=== PATIENT | male | born 1945 | race Two or more races ===

== ENCOUNTER 2017-03-03 12:56 | Emergency (ER) | payer OTHER ==
[2017-03-03 13:05] VITALS: BP 122/62; PULSE 44; RESP 16; TEMP 98.1; O2SAT 96
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
== END 2017-03-03 14:58 | disposition home or self-care (01) ==
LOC: CED 12:56
DX: S92.355A Nondisplaced fracture of fifth metatarsal bone, left foot, initial encounter for closed fracture (principal); V18.2XXA Unspecified pedal cyclist injured in noncollision transport accident in nontraffic accident, initial encounter
CPT/HCPCS: 73630; 99283; L4386